=== PATIENT | female | born 1950 | race Native Hawaiian/Other Pacific Islander ===

== ENCOUNTER 2017-04-18 23:45 | Emergency (ER) | payer OTHER, MEDICARE ==
[~2017-04-18] VITALS: Ht 172.7 cm; Wt 83.9 kg
[~2017-04-18 23:45] MED LIST: APRODINE1 TAB OR; ASPIRIN LOW81 MG OR; AZEL137S; CARV3.12 PO; DULO60CA2 OR; DULOXETINE HCL60 MG PO; FEMARA2.5 MG OR; FLECAINIDE100 MG PO; FURO40TA93 PO; GABA300C2 PO; JANUMET1 TAB PO; LEVO0.0218 PO; METFTAB PO; RAMI10CA PO; SIMV20TA2 PO; TRIA37.541 PO
[2017-04-19 00:20] LABS: PLATELET COUNT 215 K/uL (152-353)
[2017-04-19] MEDS ORDERED: TAMOXIFEN20 MG OR (00:38)
[2017-04-19] MEDS ORDERED: SPIR50TA8 PO (00:39)
[2017-04-19] MEDS ORDERED: LIPITOR40 MG PO (00:40)
[2017-04-19] MEDS ORDERED: ELIQUIS5 MG OR (00:41)
[2017-04-19] MEDS ORDERED: LISI5TAB10 PO (00:42)
[2017-04-19 00:53] LABS: PARTIAL THROMBOPLASTIN TIME 26.1 SECONDS (24.5-33.6)
[2017-04-19 01:08] LABS: POTASSIUM 3.4 mmol/L (3.6-5.2)
[2017-04-19 04:45] VITALS: BP 119/57; TEMP 98.1
== END 2017-04-19 04:55 | disposition home or self-care (01) ==
LOC: ED 23:45
DX: I48.91 Unspecified atrial fibrillation (principal); R06.09 Other forms of dyspnea
CPT/HCPCS: 36415; 80053; 82550; 83880; 84484; 85027; 85610; 85730; 93005; 96374; 96375; 96376; 99285; J2405; J3490

== ENCOUNTER 2017-06-16 12:45 | Outpatient (CLI) | payer OTHER, MEDICARE ==
[~2017-06-16 12:45] MED LIST changes: +ELIQUIS5 MG OR; +LIPITOR40 MG PO; +LISI5TAB10 PO; +SPIR50TA8 PO; +TAMOXIFEN20 MG OR
[2017-06-16 13:14] LABS: PLATELET COUNT 198 K/uL (152-353)
[2017-06-16 13:22] LABS: POTASSIUM 4.5 mmol/L (3.6-5.2)
== END 2017-06-16 20:07 | disposition home or self-care (01) ==
LOC: LABW 12:45
PROVIDERS: Internal Medicine
DX: I12.9 Hypertensive chronic kidney disease with stage 1 through stage 4 chronic kidney disease, or unspecified chronic kidney disease (principal)
CPT/HCPCS: 36415; 80053; 81000; 82043; 82570; 83735; 84100; 84155; 85027

== ENCOUNTER 2017-08-25 15:50 | Outpatient (CLI) | payer OTHER, MEDICARE | END 2017-08-25 19:08 | disposition home or self-care (01) | LOC: RAD 15:50 | DX: M79.671 Pain in right foot (principal); R60.0 Localized edema ==

== ENCOUNTER 2018-01-03 08:57 | Outpatient (CLI) | payer OTHER, MEDICARE ==
[2018-01-03 09:36] LABS: PLATELET COUNT 225 K/uL (152-353)
[2018-01-03 10:18] LABS: POTASSIUM 4.4 mmol/L (3.6-5.2)
== END 2018-01-03 21:39 | disposition home or self-care (01) ==
LOC: LABW 08:57
PROVIDERS: Internal Medicine
DX: N18.3 Chronic kidney disease, stage 3 (moderate) (principal)
CPT/HCPCS: 36415; 80053; 81000; 82043; 82306; 82570; 83735; 83970; 84100; 84155; 85027

== ENCOUNTER 2018-07-16 11:56 | Outpatient (CLI) | payer OTHER, MEDICARE ==
[2018-07-16 12:32] LABS: POTASSIUM 4.5 mmol/L (3.6-5.2)
[2018-07-16 12:33] LABS: PLATELET COUNT 149 K/uL (152-353)
== END 2018-07-16 23:23 | disposition home or self-care (01) ==
LOC: LABW 11:56
PROVIDERS: Internal Medicine Medical Oncology
DX: C50.911 Malignant neoplasm of unspecified site of right female breast (principal)
CPT/HCPCS: 36415; 80053; 85027

== ENCOUNTER 2018-09-26 12:21 | Outpatient (CLI) | payer OTHER, MEDICARE | END 2018-09-26 19:37 | disposition home or self-care (01) | LOC: RAD 12:21 | DX: J20.9 Acute bronchitis, unspecified (principal) ==

== ENCOUNTER 2018-11-22 15:52 | Outpatient (CLI) | payer OTHER | END 2018-11-22 21:42 | disposition home or self-care (01) | LOC: RAD 15:52 | DX: S32.9XXD Fracture of unspecified parts of lumbosacral spine and pelvis, subsequent encounter for fracture with routine healing (principal) ==

== ENCOUNTER 2019-02-05 18:11 | Outpatient (CLI) | payer OTHER ==
[2019-02-05 18:28] LABS: PLATELET COUNT 242 K/uL (152-353)
[2019-02-05 18:58] LABS: POTASSIUM 3.7 mmol/L (3.6-5.2)
== END 2019-02-05 21:10 | disposition home or self-care (01) ==
LOC: LABW 18:11
PROVIDERS: Internal Medicine Medical Oncology
DX: C50.911 Malignant neoplasm of unspecified site of right female breast (principal)
CPT/HCPCS: 36415; 80053; 85027

== ENCOUNTER 2019-02-20 14:16 | Outpatient (CLI) | payer OTHER ==
[2019-02-20 14:39] LABS: PLATELET COUNT 179 K/uL (152-353)
[2019-02-20 15:12] LABS: POTASSIUM 4.5 mmol/L (3.6-5.2)
== END 2019-02-20 23:47 | disposition home or self-care (01) ==
LOC: LABW 14:16
PROVIDERS: Internal Medicine Medical Oncology
DX: C22.1 Intrahepatic bile duct carcinoma (principal)
CPT/HCPCS: 36415; 80053; 85027

== ENCOUNTER 2019-03-06 12:17 | Outpatient (CLI) | payer OTHER ==
[2019-03-06 13:20] LABS: PLATELET COUNT 158 K/uL (152-353)
[2019-03-06 13:33] LABS: POTASSIUM 4.6 mmol/L (3.6-5.2)
== END 2019-03-06 23:18 | disposition home or self-care (01) ==
LOC: LABW 12:17
PROVIDERS: Internal Medicine Medical Oncology
DX: C22.1 Intrahepatic bile duct carcinoma (principal)
CPT/HCPCS: 36415; 80053; 85027

== ENCOUNTER 2019-03-20 14:13 | Outpatient (CLI) | payer OTHER ==
[2019-03-20 14:54] LABS: POTASSIUM 5.5 mmol/L (3.6-5.2)
[2019-03-20 15:03] LABS: PLATELET COUNT 169 K/uL (152-353)
== END 2019-03-20 19:15 | disposition home or self-care (01) ==
LOC: LABW 14:13
PROVIDERS: Internal Medicine Medical Oncology
DX: C22.1 Intrahepatic bile duct carcinoma (principal)
CPT/HCPCS: 36415; 80053; 85027

== ENCOUNTER 2019-04-03 13:58 | Outpatient (CLI) | payer OTHER ==
[2019-04-03 14:18] LABS: PLATELET COUNT 140 K/uL (152-353)
[2019-04-03 14:31] LABS: POTASSIUM 4.2 mmol/L (3.6-5.2)
== END 2019-04-03 21:09 | disposition home or self-care (01) ==
LOC: LABW 13:58
PROVIDERS: Internal Medicine Medical Oncology
DX: C22.1 Intrahepatic bile duct carcinoma (principal)
CPT/HCPCS: 36415; 80053; 85027

== ENCOUNTER 2019-07-25 13:45 | Outpatient (CLI) | payer OTHER | END 2019-07-25 19:58 | disposition home or self-care (01) | LOC: LABW 13:45 | DX: D64.89 Other specified anemias (principal); C22.1 Intrahepatic bile duct carcinoma; C50.911 Malignant neoplasm of unspecified site of right female breast | CPT/HCPCS: 36415; 82378; 86316 ==

== ENCOUNTER 2019-08-05 17:41 | Outpatient (CLI) | payer OTHER ==
[2019-08-05 18:55] LABS: POTASSIUM 4.4 mmol/L (3.6-5.2)
== END 2019-08-05 19:38 | disposition home or self-care (01) ==
LOC: LAB 17:41
PROVIDERS: Nurse Practitioner
DX: E11.40 Type 2 diabetes mellitus with diabetic neuropathy, unspecified (principal); E78.00 Pure hypercholesterolemia, unspecified; R53.82 Chronic fatigue, unspecified; E55.9 Vitamin D deficiency, unspecified
CPT/HCPCS: 36415; 80053; 80061; 82306; 82607; 83036; 84443

== ENCOUNTER 2020-01-06 14:29 | Outpatient (CLI) | payer OTHER ==
[2020-01-06 15:13] LABS: PLATELET COUNT 158 K/uL (152-353)
[2020-01-06 15:21] LABS: POTASSIUM 3.8 mmol/L (3.6-5.2)
== END 2020-01-06 19:18 | disposition home or self-care (01) ==
LOC: LAB 14:29
PROVIDERS: Internal Medicine Medical Oncology
DX: C22.1 Intrahepatic bile duct carcinoma (principal); D64.9 Anemia, unspecified; Z79.899 Other long term (current) drug therapy
CPT/HCPCS: 80053; 81000; 85027; 87086; 87088